=== PATIENT | male | born 1990 | race Caucasian/White ===

== ENCOUNTER 2024-04-07 21:57 | Emergency (ER) | payer BC, SELFPAY ==
[2024-04-07 22:05] VITALS: BP 147/89; PULSE 73; RESP 18; TEMP 36.9; O2SAT 97; BMI 35.6
--- NOTE | 2024-04-07 22:38 | ED.GENADULT ---
HPI - General Adult General Chief complaint: Chest Pain Stated complaint: chest pain on right side especially when breathing Time Seen by Provider: 04/07/24 22:22 History of Present Illness HPI narrative: This is a pleasant 34-year-old male presenting to the ER today with his with concern for chest pain. He has a past medical history of sleep apnea and is supposed to use a CPAP but has been struggling to wear it. He is otherwise healthy. No history of heart disease, lung disease, asthma. No history of DVT or PE. He has no history of high cholesterol or hypertension. He is not diabetic. He does have a history of some occasional anxiety and panic attacks. He is not on any medications for it but from time to time he borrow is a Klonopin from his . He has done it perhaps 3 or 4 times over the past several years. He has been under lot of stress lately with his job. He has also been up late at night because of work stress and then up early in the morning with his children. Also today his initial stressor because he had to put his family dog down. This is causing a lot of grief and crying for him. He took 1 of his 's Klonopin tonight because he was struggling so much. Then they decided to go out for dinner to see if they could distress. In the car on the way to dinner he began to have a pleuritic pain in the right upper chest, superior and lateral to the nipple. This pain sometimes radiates through and around the right chest wall to the posterior upper rib cage (but not through to the back). The pain is gone if he holds his breath but hurts when he breathes in and now. It tends to her a little bit more with inspiration and peaks when he is fully breathing in and then hurts a little bit less with expiration and feels better when he breathes Abdullahi out. He is not really short of breath. No coughing. No hemoptysis. No associated abdominal pain. No nausea or vomiting. No palpitations. He is not having any flank pain . urination is normal. No rash. No known injury. He tried rubbing his chest but that does not seem to make it feel better. notes that since they went to dinner this evening and on the way home he seems little bit drowsy and slurring his speech. She wonders if he may be sedated from the Klonopin. Speech is better now. Related Data Home Medications ?Medication ?Instructions ?Recorded ?Confirmed No Known Home Medications 04/07/24 04/07/24 Allergies Allergy/AdvReac Type Severity Reaction Status Date / Time No Known Drug Allergies Allergy Verified 04/07/24 22:08 [facility] [place] Social History Smoking Status: Former smoker How often do you have a drink containing alcohol: monthly or less AUDIT-C Alcohol total score: 1 Non-prescribed substance use: denies use Exam Narrative: Exam Narrative: Constitutional: Appears well-developed and well-nourished. Alert. Conversant. Non toxic. HENT: Head: Atraumatic. Nose: Nose normal. Mouth/Throat: Oral mucosa is clear and moist. no trismus. Eyes: Conjunctivae normal. EOM normal. Pupils equal, round, and reactive to light. No scleral icterus. Neck: Normal range of motion. Neck supple. No tracheal deviation present. No JVD Cardiovascular: Normal rate, regular rhythm. No gallop. No friction rub. No murmur heard. Symmetric radial artery pulses Pulmonary/Chest: Effort normal. No stridor. No respiratory distress. No wheezes. No rales. No rhonchi . No point chest wall tenderness. No rash. No bruising. Abdominal: Soft. Bowel sounds normal. No distension. No mass. No tenderness. No rebound. No guarding. Musculoskeletal: RUE: Normal range of motion. No tenderness. No deformity LUE: Normal range of motion. No tenderness. No deformity RLE: Normal range of motion. No edema. No tenderness. No deformity LLE: Normal range of motion. No edema. No tenderness. No deformity Lymph: No cervical adenopathy. Neurological: Alert and oriented to person, place, and time. Normal strength. CN II-VII intact. No sensory deficit. GCS eye subscore is 4. GCS verbal subscore is 5. GCS motor subscore is 6. Normal coordination Skin: Skin is warm and dry. No rash noted. No pallor. Normal capillary refill. Psychiatric: Normal affect. Polite. Endorses a lot of stress. Work related stress. Also he had to you thin eyes his pet dog today. He endorses a lot of crying and reports that this was ?a very bad day. ? Const: Vital Signs, click to edit/add: Vital Signs - 24 hr 04/07/24 22:05 Temperature 98.4 F Pulse Rate [Pulse Oximeter] 73 Respiratory Rate 18 Blood Pressure [Ri ght Upper Arm] 147/89 H Pulse Oximetry 97 Oxygen Delivery Me thod Room Air Course Course ED Course: Recheck-pain is improved after ibuprofen down to a 4/10. Patient says he feels much better when he lay still but still has some pain with breathing when he gets up and moves around Vital Signs Vital signs: Initial Vital Signs Respiratory Effort Normal, Spontaneous, Non-Labored 04/07/24 21:58 Respiratory Depth Normal 04/07/24 21:58 Respiratory Pattern Normal 04/07/24 21:58 Vital Signs Temperature 98.4 F 04/07/24 22:05 Pulse Rate 73 04/07/24 22:05 Respiratory Rate 18 04/07/24 22:05 Blood Pressure 147/89 H 04/07/24 22:05 Pulse Oximetry 97 04/07/24 22:05 Oxygen Delivery Method Room Air 04/07/24 22:05 Temperature 98.4 F 04/07/24 22:05 Pulse Rate 73 04/07/24 22:05 Respiratory Rate 18 04/07/24 22:05 Blood Pressure 147/89 H 04/07/24 22:05 Pulse Oximetry 97 04/07/24 22:05 Oxygen Delivery Method Room Air 04/07/24 22:05 Medications Administered Medications: Discontinued Medications Generic Name Dose Route Start Last Admin Trade Name Freq PRN Reason Stop Dose Admin Aspirin 162 mg 04/07/24 22:56 04/07/24 23:01 Aspirin 81 Mg Tab.Chew PO 04/07/24 22:57 162 mg ONCE ONE Administration Ibuprofen 600 mg 04/07/24 22:54 04/07/24 23:01 Ibuprofen 600 Mg Tablet PO 04/07/24 22:55 600 mg ONCE ONE Administration Medical Decision Making [facility] Narrative Medical decision making narrative: This patient presents to the ER today for evaluation of pleuritic right upper chest pain. Differential was broad. No evidence of palpitations, syncope or other cardiac dysrhythmia. We considered possible ACS, however pleuritic right upper chest pain would be highly atypical for acute coronary syndrome. Nonetheless, although unlikely, ACS is theoretically possible. Initial EKG and troponin is negative. HEART score is 1. Given time since onset of symptoms, we will check an arrival and 2 hour delta troponin, to be drawn at 12:30 a.m.. If it is normal, I think we have sufficient evidence for the patient to safely discharged for outpatient follow-up.. I do not think the patient needs to be admitted for further sets of enzymes. Discussed with my oncoming partner Dr. Driver who will follow-up on the 2nd troponin. If it remains normal patient can discharge per my plan. EKG shows no evidence for pericarditis. Clinical presentation not suggestive of myocarditis. Chest x-ray shows no evidence for pneumonia, pneumothorax, pulmonary edema, pleural effusion, rib fracture, cardiomegaly. Mediastinum is normal on the x-ray. The patient has no ripping or tearing pain through to the back and has symmetric pulses on exam, no other acute neuro findings so I doubt aortic dissection. Risk of radiation and contrast exposure would outweigh the benefit of CT angiogram. We considered PE for this patient. Overall he is low risk and has stable vital signs. He is negative by PERC so will hold off on D-dimer testing or CT PA for now. At this point risk of radiation would outweigh the potential benefit given the very low likelihood of PE. No wheezing or bronchospasm to suggest COPD/asthma. No signs of chest wall cellulitis, shingles, injury. He does have a lot of anxiety and grief going on due to job stress and in particular due to the of his pet dog today. No associated abdominal pain to suggest peptic ulcer disease or cholecystitis. Pain started before dinner and was not postprandial. With reasonable clinical confidence, I think the patient is safe for outpatient follow up. Discussed return precautions. Questions answered. Patient voices comfort with the plan. Lab Data Labs: Lab Results 04/07/24 04/07/24 Range/Units 22:18 22:30 WBC 8.40 (4.50-11.00) K/uL RBC 4.67 (4.30-5.90) m/uL Hgb 13.9 (13.5-17.5) gm/dL Hct 40.2 (37.0-53.0) % MCV 86 (80-100) fL MCH 30 (26-34) pg MCHC 35 (32-36) gm/dL RDW Coeff of [place] 11.8 (11.5-15.5) % Plt Count 293 (140-440) K/uL Neut % (Auto) 48.2 (42.0-72.0) % Lymph % (Auto) 37.0 (20-44) % [place] % (Auto) 10.8 (0.0-11.0) % Eos % (Auto) 3.0 (0.0-7.0) % Baso % (Auto) 0.5 (0.0-3.0) % Neut # (Auto) 4.05 (1.7-7.0) K/uL Lymph # (Auto) 3.11 H (0.90-2.90) K/uL [place] # (Auto) 0.90 (0.00-0.90) K/UL Eos # (Auto) 0.25 (0.00-0.50) K/uL Baso # (Auto) 0.04 (0.00-0.30) K/uL Abs Immat Gran (auto) 0.04 (0.00-0.30) K/uL Imm/Tot Granulo (auto) 0.5 % Sodium 139 (135-149) mmol/L Potassium 3.6 (3.6-5.1) mmol/L Chloride 105 (96-114) mmol/L Carbon Dioxide 27 (20-32) mmol/L Anion Gap 7 (7-15) mEq/L BUN 14 (5-24) mg/dL Creatinine 0.8 (0.5-1.5) mg/dL Estimated Creat Clear 135.96 Estimated GFR 118 ml/min Glucose 118 H (60-115) mg/dL Calcium 8.6 (8.4-10.6) mg/dL POC Troponin I 0.00 L (0.01-0.04) ng/ml Imaging Data Chest x-ray: Attestation: I have reviewed the pertinent imaging results. My impression: Normal cardiac silhouette. Normal mediastinum. Clear lung stroud. No evidence for pneumonia, pneumothorax, pulmonary edema, pleural effusion, or visible rib fracture. Radiologist's impression: FINDINGS: The heart is not abnormally enlarged. The trachea is midline. No confluent airspace opacity appreciated. No pleural effusion or pneumothorax. No acute osseous abnormality. IMPRESSION: No acute cardiopulmonary abnormality. ECG Data Attestation: I personally reviewed and interpreted this ECG as follows: Interpretation: Normal sinus rhythm Rate: 70 LA: 162 QRS axis: Normal axis. No pathologic Q-waves. ST segment/T wave: No ST segment elevation or depression. QTc: 406 Discharge Plan Discharge Prescriptions: No Action No Known Home Medications Follow Up/Referrals: Provider,Not a Local [Primary Care Provider] -
--- NOTE | 2024-04-07 22:55 | CRLHL7_ITS ---
For Patients: As a result of the Century Cures Act, medical imaging exams and procedure reports are released immediately into your electronic medical record. You may view this report before your referring provider. If you have questions, please contact your health care provider. INDICATION: Chest pain, right-sided. TECHNIQUE: Chest 2 views. COMPARISON: None. FINDINGS: The heart is not abnormally enlarged. The trachea is midline. No confluent airspace opacity appreciated. No pleural effusion or pneumothorax. No acute osseous abnormality. IMPRESSION: No acute cardiopulmonary abnormality. Dictated by Rito Christie MD @ 04/07/2024 11:17:39 PM (Electronically Signed)
[2024-04-07 22:57] LABS: Chloride* 105 mmol/L (96-114); Potassium* 3.6 mmol/L (3.6-5.1); Sodium* 139 mmol/L (135-149)
[2024-04-07 23:00] LABS: Anion Gap 7 mEq/L (7-15); Blood Urea Nitrogen* 14 mg/dL (5-24); Carbon Dioxide* 27 mmol/L (20-32); Creatinine* 0.8 mg/dL (0.5-1.5); Est. Creatinine Clearance* 135.96; Estimated Glomerular Filt Rate 118 ml/min
[2024-04-07 23:01] LABS: Calcium* 8.6 mg/dL (8.4-10.6); Glucose* 118 mg/dL (60-115)
[2024-04-07] MEDS: ASPIRIN 81 MG TAB.CHEW 162 MG PO (23:01)
[2024-04-07] MEDS: IBUPROFEN 600 MG TABLET PO (23:01)
[2024-04-07 23:04] LABS: Basophils Absolute Auto 0.04 K/uL (0.00-0.30); Basophils Percent Auto 0.5 % (0.0-3.0); Eosinophils Absolute Auto 0.25 K/uL (0.00-0.50); Hematocrit 40.2 % (37.0-53.0); Hemoglobin* 13.9 gm/dL (13.5-17.5); Immature Granulocytes Abs Auto 0.04 K/uL (0.00-0.30); Immature Granulocytes Pct Auto 0.5 %; Lymphocytes Absolute Auto 3.11 K/uL (0.90-2.90); Mean Corpuscular HGB Conc 35 gm/dL (32-36); Mean Corpuscular Hemoglobin 30 pg (26-34); Mean Corpuscular Volume 86 fL (80-100); Monocytes Percent Auto 10.8 % (0.0-11.0); Neutrophils Absolute Auto 4.05 K/uL (1.7-7.0); Neutrophils Percent Auto 48.2 % (42.0-72.0); Platelet Count* 293 K/uL (140-440); RDW Coefficient of Variation % 11.8 % (11.5-15.5); Red Blood Count 4.67 m/uL (4.30-5.90)
[2024-04-07 23:06] LABS: Slide Review Reflex No
[2024-04-08 00:58] VITALS: BP 119/74; PULSE 75; RESP 16; O2SAT 100
== END 2024-04-08 01:03 | disposition home or self-care (01) ==
PROVIDERS: Emergency Provider Emergency Medicine
DX: R07.9 Chest pain, unspecified (principal)
CPT/HCPCS: 36415; 71046; 80048; 84484; 85025; 99283; 99284; A9270